=== PATIENT | male | born 1970 | race Caucasian/White ===

== ENCOUNTER 2017-09-22 12:39 | Emergency (ER) | payer MEDICARE ==
[2017-09-22 14:55] VITALS: BP 137/78
--- NOTE | 2017-09-22 15:04 | UC ---
Respiratory Complaint HPI - HPI Summary HPI Summary: Cough ongoing for 3 weeks. Sinus pressure last 4-5 days. Wheezing. - History of Current Complaint Chief Complaint: UCGeneralIllness Stated Complaint: SINUS Hx Obtained From: Patient Onset/Duration: Gradual Onset, Lasting Weeks - 3, Worse Since - last 4-5 days. Timing: Constant Severity Initially: Mild Severity Currently: Moderate Pain Intensity: 7 Character: Cough: Productive - green/ yellow, thick Aggravating Factors: Recumbent Position Alleviating Factors: Nothing Associated Signs And Symptoms: Positive: Wheezing, URI, Nasal Congestion, Hoarseness, Sinus Discomfort Related History: Seasonal Allergies - Allergies/Home Medications Allergies/Adverse Reactions: Allergies Allergy/AdvReac Type Severity Reaction Status Date / Time No Known Allergies Allergy Verified 09/22/17 14:46 Home Medications: Home Medications Amitriptyline TAB* [Elavil TAB*] 10 mg PO BEDTIME 09/22/17 [History Confirmed ] Dextromethorphan-Phenylephrine [Sudafed PE Preesure+Pain+ 10-5-325 mg] 2 tab PO Q4H PRN 09/22/17 [History Confirmed 09/22/17] Gabapentin CAP(*) [Neurontin 300 CAP(*)] 300 mg PO TID 09/22/17 [History Confirmed 09/22/17] Lisinopril TAB* [Prinivil TAB 10 MG*] 10 mg PO DAILY 09/22/17 [History Confirmed 09/22/17] Omeprazole CAP* [Prilosec CAP* 20 MG] 20 mg PO DAILY 09/22/17 [History Confirmed 09/22/17] PMH/Surg Hx/FS Hx/Imm Hx Cardiovascular History: Hypertension - Surgical History Surgical History: Yes Surgery Procedure, Year, and Place: L4 L5 Laminectomy. Dorsal Column Surgery - Family History Known Family History: Positive: Cardiac Disease, Hypertension, Diabetes - Social History Occupation: Disabled Lives: With Family Alcohol Use: Weekly Substance Use Type: Prescribed Smoking Status (MU): Current Every Day Smoker Type: Cigarettes Amount Used/How Often: 1 PPD Length of Time of Smoking/Using Tobacco: 31 Years Have You Smoked in the Last Year: Yes Review of Systems Constitutional: Fatigue ENT: Sinus Congestion, Sinus Pain/Tenderness Respiratory: Shortness Of Breath, Cough Is Patient Immunocompromised?: No All Other Systems Reviewed And Are Negative: Yes Physical Exam Triage Information Reviewed: Yes Appearance: No Pain Distress, Ill-Appearing, Obese Vital Signs: Initial Vital Signs Temp 97.6 F 09/22/17 14:50 Pulse 86 09/22/17 14:50 Resp 16 09/22/17 14:50 BP 137/78 09/22/17 14:50 Pulse Ox 97 09/22/17 14:50 Vital Signs Reviewed: Yes Eyes: Positive: Conjunctiva Clear ENT: Positive: Pharyngeal erythema, TMs normal Neck exam: Normal Respiratory: Positive: Lungs clear, Wheezing - Expiratory wheeze with coughing. Cardiovascular Exam: Normal Musculoskeletal: Positive: Other: - antalgic gait Neurological Exam: Normal Psychological Exam: Normal Skin Exam: Normal UC Diagnostic Evaluation - Laboratory O2 Sat by Pulse Oximetry: 97 Respiratory Course/Dx - Differential Dx/Diagnosis Differential Diagnosis/HQI/PQRI: Asthma, Exacerbation Of COPD, Laryngitis, Sinusitis Provider Diagnoses: Acute URI. Acute sinusitis. Acute bronchospasm Discharge - Discharge Plan Condition: Stable Disposition: HOME Prescriptions: predniSONE TAB* [Deltasone TAB*] 20 mg PO DAILY #18 tab Sulfamethox/Trimethoprim DS* [Bactrim DS 800/160 TAB*] 1 tab PO BID #20 tab Patient Education Materials: Sinusitis (ED), Sulfamethoxazole/Trimethoprim (By mouth), Bronchospasm (ED), Prednisone (By mouth) Referrals: No Primary Care Phys,NOPCP [Primary Care Provider] - Additional Instructions: Smoking Cessation Tricks. 1. Cut down by 1 cigarette per day every 2-3 days. Write the number of smokes for that day on the calendar. 2. Identify triggers to smoking: after meals, on the phone, in the car, with coffee, on breaks at work, etc. 3. Formulate a plan with a behavior to replace the smoking. Fireballs in the car , doodle pad on the phone, flavored creamer for the coffee, go for a walk after a meal or on break at work. 4. For stress smokes do deep breathing relaxation. Breath deep in through the nose hold the breath in for a few seconds then breath out slowly through the mouth.
== END 2017-09-22 15:18 | disposition home or self-care (01) ==
LOC: UCCORT 12:39
DX: J06.9 Acute upper respiratory infection, unspecified (principal); J01.90 Acute sinusitis, unspecified; J98.01 Acute bronchospasm; I10 Essential (primary) hypertension; E66.9 Obesity, unspecified; F17.210 Nicotine dependence, cigarettes, uncomplicated
CPT/HCPCS: 99212; G0463

== ENCOUNTER 2017-10-19 10:01 | Emergency (ER) | payer MEDICARE ==
[2017-10-19 13:08] VITALS: BP 170/97
--- NOTE | 2017-10-19 13:27 | UC ---
Respiratory Complaint HPI - HPI Summary HPI Summary: patient treated for a sinus infection 3 weeks ago, but now has SOB with walking , rib pain and productive cough, denies fever, but feels very sweaty most of the time, he is a smoker. - History of Current Complaint Chief Complaint: UCGeneralIllness Stated Complaint: COUGH,CONGESTION Time Seen by Provider: 10/19/17 12:57 Hx Obtained From: Patient Onset/Duration: Gradual Onset, Lasting Weeks Timing: Constant Severity Initially: Mild Severity Currently: Moderate Pain Intensity: 4 Character: Cough: Productive Aggravating Factors: Exertion, Deep Breaths, Recumbent Position Alleviating Factors: Bronchodilator Associated Signs And Symptoms: Positive: Dyspnea, Fever, Chills, Wheezing, URI, Nasal Congestion - Allergies/Home Medications Allergies/Adverse Reactions: Allergies Allergy/AdvReac Type Severity Reaction Status Date / Time No Known Allergies Allergy Verified 10/19/17 12:58 PMH/Surg Hx/FS Hx/Imm Hx Previously Healthy: Yes - Surgical History Surgical History: Yes Surgery Procedure, Year, and Place: L4 L5 Laminectomy. Dorsal Column Surgery - Family History Known Family History: Positive: Cardiac Disease, Hypertension, Diabetes - Social History Alcohol Use: Weekly Substance Use Type: None Smoking Status (MU): Current Every Day Smoker Type: Cigarettes Amount Used/How Often: 1 PPD Length of Time of Smoking/Using Tobacco: 31 Years Have You Smoked in the Last Year: Yes Household Exposure Type: Cigarettes Review of Systems Constitutional: Fever, Chills, Fatigue Skin: Negative Eyes: Negative ENT: Sore Throat, Ear Ache, Sinus Congestion Respiratory: Shortness Of Breath, Cough Cardiovascular: Negative Gastrointestinal: Negative Genitourinary: Negative Motor: Negative Neurovascular: Negative Musculoskeletal: Negative Neurological: Negative Psychological: Negative Is Patient Immunocompromised?: No All Other Systems Reviewed And Are Negative: Yes Physical Exam Triage Information Reviewed: Yes Appearance: Well-Nourished, Ill-Appearing, Pain Distress Vital Signs: Initial Vital Signs Temp 97.8 F 10/19/17 12:57 Pulse 95 10/19/17 12:57 Resp 20 10/19/17 12:57 BP 170/97 10/19/17 12:57 Pulse Ox 97 10/19/17 12:57 Vital Signs Reviewed: Yes Eye Exam: Normal ENT Exam: Normal ENT: Positive: Pharynx normal, TMs normal, Sinus tenderness Dental Exam: Normal Neck exam: Normal Neck: Positive: Supple, Nontender, No Lymphadenopathy Respiratory: Positive: Chest non-tender, Respiratory distress - with exertion, Decreased breath sounds - right lower lobe, Wheezing, Inspiration Cardiovascular Exam: Normal Cardiovascular: Positive: RRR, No Murmur, Pulses Normal Abdominal Exam: Normal Abdomen Description: Positive: Nontender, No Organomegaly, Soft Bowel Sounds: Positive: Present Musculoskeletal Exam: Normal Musculoskeletal: Positive: Strength Intact, ROM Intact, No Edema Neurological Exam: Normal Neurological: Positive: Alert, Muscle Tone Normal Psychological Exam: Normal Skin Exam: Normal UC Diagnostic Evaluation - Laboratory O2 Sat by Pulse Oximetry: 97 Re-Evaluation - Re-Evaluation First Eval Change: Improved - manual BP taken at exam BP 140/86 Respiratory Course/Dx - Course Course Of Treatment: hx obtained, exam performed ,meds reviewed, chest xray obtained, educated on risks of smoking and HTN and smoking and RESP illness. advised monitoring BP for the next week and report back to he PCP for follow up. - Differential Dx/Diagnosis Differential Diagnosis/HQI/PQRI: Asthma, Bronchitis, Influenza, Laryngitis, Sinusitis Provider Diagnoses: tobacco abuse. dyspnea. SOB. cough,. possible pneumonia. Hypertension Discharge - Discharge Plan Condition: Stable Disposition: HOME Prescriptions: Albuterol 2.5MG/3ML (0.083%)* [Ventolin 2.5 MG/3 ML NEB.HOLLIE*] 2.5 mg INH Q6H PRN #1 box PRN Reason: Cough Albuterol HFA INHALER* [Ventolin HFA Inhaler*] 2 puff INH Q4H PRN #1 mdi PRN Reason: Sob/Wheezing DOXYcycline CAP(*) [DOXYcycline 100MG CAP(*)] 100 mg PO BID #14 cap predniSONE TAB* [Deltasone TAB*] 40 mg PO DAILY #14 tab Patient Education Materials: Dyspnea (ED) Referrals: No Primary Care Phys,NOPCP [Primary Care Provider] - Additional Instructions: 1. take the medication as prescribed. 2. Use the albuterol neb twice a day and the inhaler every 4 hours as needed. 3. Prednisone for 7 days. 4. Follow up with any worsening symptoms. 5. Tylenol or Ibuprofen for pain and fever.
[2017-10-19] MEDS ORDERED: Albuterol/Ipratropium NEB.SOL* Albuterol 2.5 MG/Ipratropium 0.5 MG 3 ML INH ONE (14:01)
--- NOTE | 2017-10-19 14:48 | RAD ---
Indication: Shortness of breath, cough. 2 views of the chest are reviewed. Neurostimulator leads appear in place. Lung to demonstrate no pleural fluid, pneumonia or pneumothorax. IMPRESSION: No active cardiopulmonary disease is noted.
== END 2017-10-19 14:27 | disposition home or self-care (01) ==
LOC: UCCORT 10:01
DX: R06.00 Dyspnea, unspecified (principal); R06.02 Shortness of breath; R05 Cough; F17.210 Nicotine dependence, cigarettes, uncomplicated; I10 Essential (primary) hypertension
CPT/HCPCS: 71046; 99212; A9270-GY; G0463

== ENCOUNTER 2018-08-18 15:27 | Emergency (ER) | payer MEDICARE ==
--- OUTSIDE RECORDS SUMMARY | 2018-08-18 16:54 | XMS REPORT | Continuity of Care Document ---
:1970 Author Organization [facility] Allergies and Intolerances No Known Allergies Medications RxNorm Medication Dose Route Instructions Start End Status Date Date Albuterol HFA Inhaler 2 puff Inhalation inhaled every 6 Active 90 mcg/actuation hours as needed. Breo Ellipta Inhaler 1 inh Inhalation inhaled every Active 100 mcg-25 mcg/dose day Fluoxetine Oral 10 mg oral orally every Active day gabapentin 300 mg oral orally 3 times Active per day 19780401 Hydrochlorothiazide 25 1 tab oral orally every Active MG / Lisinopril 20 MG day Oral Tablet 20021004 Omeprazole 40 MG 40 mg oral orally every Active Delayed Release Oral day Capsule 610199 varenicline 1 MG Oral 1 mg oral orally 2 times Active Tablet per day vit d 80933sx oral orally every 7 Active days vit d 1000iu oral orally every Active day Problems Code Code System Problem Name Start Date End Date Status 72468010 SNOMED-CT Depressive disorder 07/03/2018 Active 52000330 SNOMED-CT Hypertensive disorder 07/03/2018 Active 90686822 SNOMED-CT Hypercholesterolemia 07/03/2018 Active sob with exertion 07/03/2018 Active 8668065 SNOMED-CT Arthritis 07/03/2018 Active 039755557 SNOMED-CT Backache 07/03/2018 Active 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 placement back stimulator Active 919109196 SNOMED-CT Laminectomy U Active battery replacement to stimuator U Active nasal polypectomy U Active cardiac catheterization U Active Procedures Code Code System Procedure Date 8JE40V7 ICD-10 PCS EXCISION STOMACH PERQ ENDO VERTICAL 07/23/2018 [id number] ICD-10 PCS RELEASE OMENTUM PERCUTANEOUS ENDO 07/23/2018 Results Laboratory Results Order: BASIC METABOLIC PANEL Specimen Source: Body Site: Legend: (G,H)=High, (GG,HH,CH,#H)=Above High Threshold, (#,L) =Low, (##,CL,#L,LL)=Below Low Threshold, (C,CC,CA,#A,A)=Abnormal LOINC Test Result Flag Range Units Date 2951-2 1Sodium SerPl-sCnc 137 136-145 mmol/L 2018 04:25 2823-3 1Potassium SerPl-sCnc 3.9 3.5-5.2 mmol/L 2018 04:25 5-0 1Chloride SerPl-sCnc 103 100-108 mmol/L 2018 04:25 8-9 1CO2 SerPl-sCnc 27 21-32 mmol/L 2018 04:25 2345-7 1Glucose SerPl-mCnc 89 70-100 mg/dL 2018 04:25 3094-0 1BUN SerPl-mCnc 22 H 7-21 mg/dL 2018 04:25 2160-0 1Creat SerPl-mCnc 0.8 0.6-1.3 mg/dL 2018 04:25 Interpretive Katerin: 1Normal Kidney Function or Mild Disease - GFR >OR=60 Chronic Kidney Disease - GFR 15-59 Renal Failure - GFR < 15 GFR not calculated on patients under 18 years of age. Calculated (estimated) GFR is based on the MDRD Study equation, which assumes a steady state for creatinine. Estimated GFR may not be appropriate for medication dosing. 17413-0 1Ca-I SerPl-mCnc 8.9 8.5-10.8 mg/dL 2018 04:25 15269-0 1GFR/BSA.pred SerPl-ArVRat >60 2018 04:25 Performing Lab Footnotes:[facility] - [id number] - [address] [place] [address] KEVIN BRANCH Order: CBC DIFF Specimen Source: Body Site: Legend: (G,H)=High, (GG,HH, CH,#H)=Above High Threshold, (#,L)=Low, (##,CL,#L,LL)=Below Low Threshold, (C,CC ,CA,#A,A)=Abnormal LOINC Test Result Flag Range Units Date 6690-2 1WBC # Bld Auto 10.8 4.8-10.8 K/uL 2018 04:25 00241-6 1RBC # Bld 4.15 L 4.60-6.20 M/uL 2018 04:25 718-7 1Hgb Bld-mCnc 13.5 13.5-18.0 gm/dL 2018 04:25 4544-3 1Hct VFr Bld Auto 39.2 L 41.0-53.0 % 2018 04:25 787-2 1MCV RBC Auto 94.6 80.0-100.0 fL 2018 04:25 85414-8 1MCHC RBC-mCnc 34.5 30.0-36.5 % 2018 04:25 75161-2 1MCH RBC Qn 32.6 27.0-34.0 pg 2018 04:25 37940-2 1RDW RBC 12.5 11.0-15.0 % 2018 04:25 777-3 1Platelet # Bld Auto 167 130-450 K/uL 2018 04:25 02928-0 1PMV Bld Auto 7.4 6.0-12.0 fL 2018 04:25 751-8 1Neutrophils # Bld Auto 65 37-80 % 2018 04:25 15760-6 1Lymphocytes NFr Bld 24 10-50 % 2018 04:25 5905-5 1Monocytes NFr Bld Auto 10 0-12 % 2018 04:25 88401-6 1Eosinophil # Bld 1 <=8 % 2018 04:25 704-7 1Basophils # Bld Auto 0 <=3 % 2018 04:25 61707-0 1Neutrophils # Bld 7.0 1.8-8.6 K/uL 2018 04:25 731-0 1Lymphocytes # Bld Auto 2.6 0.5-5.0 K/uL 2018 04:25 742-7 1Monocytes # Bld Auto 1.1 0.0-1.3 K/uL 2018 04:25 31728-7 1Eosinophil # Bld 0.1 0.0-0.9 K/uL 2018 04:25 704-7 1Basophils # Bld Auto 0.0 0.0-0.3 K/ul 2018 04:25 Performing Lab Footnotes:[facility] - [id number] - [address] [place] [address] KEVIN Tinsley ROSEANNOMD1 Order: BASIC METABOLIC PANEL Specimen Source: Body Site: Legend: (G,H)= High, (GG,HH,CH,#H)=Above High Threshold, (#,L)=Low, (##,CL,#L,LL)=Below Low Threshold, (C,CC,CA,#A,A)=Abnormal LOINC Test Result Flag Range Units Date 2951-2 1Sodium SerPl-sCnc 137 136-145 mmol/L 07/24/2018 05:12 2823-3 1Potassium SerPl-sCnc 4.2 3.5-5.2 mmol/L 07/24/2018 05:12 5-0 1Chloride SerPl-sCnc 101 100-108 mmol/L 07/24/2018 05:12 8-9 1CO2 SerPl-sCnc 27 21-32 mmol/L 07/24/2018 05:12 2345-7 1Glucose SerPl-mCnc 136 H 70-100 mg/dL 07/24/2018 05:12 3094-0 1BUN SerPl-mCnc 16 7-21 mg/dL 07/24/2018 05:12 2160-0 1Creat SerPl-mCnc 0.9 0.6-1.3 mg/dL 07/24/2018 05:12 Interpretive Katerin: 1Normal Kidney Function or Mild Disease - GFR >OR=60 Chronic Kidney Disease - GFR 15-59 Renal Failure - GFR < 15 GFR not calculated on patients under 18 years of age. Calculated (estimated) GFR is based on the MDRD Study equation, which assumes a steady state for creatinine. Estimated GFR may not be appropriate for medication dosing. 07319-3 1Ca-I SerPl-mCnc 9.2 8.5-10.8 mg/dL 07/24/2018 05:12 20379-5 1GFR/BSA.pred SerPl-ArVRat >60 07/24/2018 05:12 Performing Lab Footnotes:[facility] - [id number] - [address] [place] [address] KEVIN Tinsley ROSEANNOMD1 Order: CBC DIFF Man Diff Specimen Source: Body Site: Legend: (G,H)=High , (GG,HH,CH,#H)=Above High Threshold, (#,L)=Low, (##,CL,#L,LL)=Below Low Threshold, (C,CC,CA,#A,A)=Abnormal LOINC Test Result Flag Range Units Date 6690-2 1WBC # Bld Auto 14.6 H 4.8-10.8 K/uL 07/24/2018 05:12 52777-0 1RBC # Bld 4.69 4.60-6.20 M/uL 07/24/2018 05:12 718-7 1Hgb Bld-mCnc 14.9 13.5-18.0 gm/dL 07/24/2018 05:12 4544-3 1Hct VFr Bld Auto 44.1 41.0-53.0 % 07/24/2018 05:12 787-2 1MCV RBC Auto 94.0 80.0-100.0 fL 07/24/2018 05:12 22286-2 1MCH RBC Qn 31.7 27.0-34.0 pg 07/24/2018 05:12 94064-9 1MCHC RBC-mCnc 33.7 30.0-36.5 % 07/24/2018 05:12 59940-2 1RDW RBC 12.6 11.0-15.0 % 07/24/2018 05:12 777-3 1Platelet # Bld Auto 211 130-450 K/uL 07/24/2018 05:12 00697-5 1PMV Bld Auto 7.1 6.0-12.0 fL 07/24/2018 05:12 1MANUAL DIFFERENTIAL 75230-4 1Neuts Seg NFr Bld 86 H 37-80 % 07/24/2018 05:12 81721-7 1Granulocytes NFr Bronch Manual 1 % 07/24/2018 05:12 29375-3 1Lymphocytes NFr Bld 5 L 10-50 % 07/24/2018 05:12 743-5 1Monocytes # Bld Manual 8 <=12 % 07/24/2018 05:12 Performing Lab Footnotes:[facility] - [id number] - [address] [place] [address] KEVIN Tinsley ROSEANNOMD1 Order: MAGNESIUM Specimen Source: Body Site: Legend: (G,H)=High, (GG,HH ,CH,#H)=Above High Threshold, (#,L)=Low, (##,CL,#L,LL)=Below Low Threshold, (C, CC,CA,#A,A)=Abnormal LOINC Test Result Flag Range Units Date 1Magnesium SerPl-mCnc 2.2 1.7-2.6 mg/dL 07/24/2018 05:12 Performing Lab Footnotes:[facility] - [id number] - [address] [place] [address] KEVIN BERRIOSD1 Order: PHOSPHORUS Specimen Source: Body Site: Legend: (G,H)=High, (GG, HH,CH,#H)=Above High Threshold, (#,L)=Low, (##,CL,#L,LL)=Below Low Threshold, (C ,CC,CA,#A,A)=Abnormal LOINC Test Result Flag Range Units Date 27702-23 1Phosphate SerPl-mCnc 3.3 2.5-4.9 mg/dL 07/24/2018 05:12 Performing Lab Footnotes:[facility] - [id number] - [address] [place] [address] KEVIN BRANCH Pathology Results Order:PATHOLOGY CYTOLOGY HISTOLCollected Date: 07/23/2018 12:00:00 AM TISSUE PORTION OF STOMACH CLINICAL DIAGNOSIS MORBID OBESITY FINAL DIAGNOSIS STOMACH, PARTIAL GASTRECTOMY: FUNDIC GLAND TYPE POLYP. NO H. PYLORI IDENTIFIED. GROSS A. SPECIMEN IS RECEIVED IN FORMALIN LABELLED DARSHANA SOLANO, WITH MEDICAL RECORD NUMBER, DATE OF AND "PORTION OF STOMACH", AND CONSISTS OF A 28.0 X 5.0 X 5.0 CM., PARTIAL GASTRECTOMY SPECIMEN WITH STAPLE MARGINS EXTENDING ALONG ONE OF THE ENTIRE LONG AXES OF THE SPECIMEN. SECTIONING OF THE SPECIMEN REVEALS AN AVERAGE STOMACH WALL THICKNESS OF 0.3 CM. THE MUCOSA IS DAVIS-PINK AND, OTHERWISE, UNREMARKABLE EXCEPTING FOR VERY RARE MUCOSAL POLYPS AND SOME POSSIBLE MUCOSAL COBBLESTONING. MATERIALS BRANCH CHIEF SECTIONS ARE SUBMITTED IN 3 CASSETTES (CASSETTE 2 - POLYP). (CG/KI) MICROSCOPIC WARTHIN-STARRY STAIN FAILS TO HIGHLIGHT ORGANISMS CONSISTENT WITH H. PYLORI. APPROPRIATE REACTIVE APPEARING CONTROLS ARE REVIEWED. ANTONI MORRIS D.O. , PATHOLOGIST (CASE SIGNED 07/24/2018) Social History Code Code System Social History Description Dates Observed Observation 620686681871305 SNOMED CT Current Smoking Current some day Status smoker UNK AdministrativeGender Sex Assigned At Unknown Vital Signs Code Code System Vitals Value Date 8310-5 LOINC Body Temperature 98.7 [degF] 2018 8865-8 LOINC Pulse Rate 71 {beats}/min 2018 9279-1 LOINC Respiratory Rate 18 /min 2018 90832-6 LOINC O2% BldC Oximetry 94 % 2018 8480-6 LOINC BP Systolic 129 mm[Hg] 2018 8462-4 LOINC BP Diastolic 83 mm[Hg] 2018 8302-2 LOINC Height 72 [in_i] 07/22/2018 22042-4 LOINC Weight 151 kg 07/22/2018 3140-1 LOINC Body surface area Derived from formula 2.65 m2 07/22/2018 20748-6 LOINC BMI (Body Mass Index) 45.5 kg/m2 07/22/2018 Goals Section No data in the system Health Concerns No data in the systemEncounter Diagnosis Date Code Code System Diagnosis Status 45206231716558 SNOMED-CT MORBID SEVERE OBES D/T EXCESS OMER Active Advance Directives [facility] Directive Type Effective Date Oracle Programmer Notes Supporting Document Name Address Phone No Directive 07/23/2018 Not Specified Not Specified Not dtr Jemima is Yes Type 7:02:00 AM Specified HCP-- specified [phone]. *RHIO - CONSENT IS YES Directive Type Effective Date Oracle Programmer Notes Supporting Document Name Address Phone No Directive Type 05/15/2018 Not Specified Not Specified Not Specified None No specified 12:10:45 PM Family History No data in the system Functional Status Code Functional Condition Code System Date Status Self care SNOMED CT 07/23/[address] 07/23/[address] 2018 Active Family/so SNOMED CT 07/23/[address]izes understanding SNOMED CT 2018 Active Needs further teaching SNOMED CT 07/23/2018 Active 1 or 2 - all of the above SNOMED CT 2018 Active 1 or 2 - pad bony prominences SNOMED CT 07/23/2018 Active Bathroom privileges SNOMED CT 07/23/[address] 2018 Active 3 - wedge foam cushion if oob SNOMED CT 07/24/2018 Active 4 - manage pain and encourage activity as SNOMED CT 2018 Active tolerated 3 - encourage and assist as needed in SNOMED CT 07/24/2018 Active repositioning 3 - encourage active rom SNOMED CT 07/24/2018 Active 3 - include family in interventions SNOMED CT 07/24/[address] Active Self feed SNOMED CT 07/24/[address] 07/24/[address] 07/24/[address] Active Needs assistance SNOMED CT 07/24/2018 Active 364136240 Able to wash self SNOMED CT 2018 Active Immunizations Vaccine Code Code System Vaccine Name Date Status flu 07/02/2018 Completed Medical Equipment Implants Implanted Date Implant Site HADLEY stimularor back Mental Status Code Cognitive Condition Code System Date Status Clear SNOMED CT 07/23/2018 Active 478123840 Orientated SNOMED CT 07/23/2018 Active 981089185 Mentally alert SNOMED CT 07/23/2018 Active 145481251 Oriented to time SNOMED CT 07/23/2018 Active 119887278 Oriented to time (finding) SNOMED CT 07/23/2018 Active 898306819 Oriented to place SNOMED CT 07/23/2018 Active 488695990 Oriented to place (finding) SNOMED CT 07/23/2018 Active 857181094 [facility] Active Assessment and Plan Assessments No data in the systemPlan Of Treatment No data in the systemPending Tests No data in the system Hospital Discharge Instructions Discharge InstructionsDischarge DiagnosisLAPAROSCOPIC SLEEVE GASTRECTOMYFollow Up AppointmentFOLLOW UP WITH DR. SHARMA IN 1-2 WEEKS, FOLLOW UP WITH PRIMARY CARE IN 1 MONTHDiet at HomeBARIATRIC DIET FOR 1 WEEK, ADVANCE TOLERATEDActivityALL LIGHT ACTIVITIES PERMITTED/ NO LIFTING > 15 LBS FOR 6 WEEKSMAY GO UP AND DOWN STAIRSWound Care Instructions:KEEP WOUNDS CLEAN AND DRY / SURGICAL GLUE, WASH OVER INCISIONS WITH SOAP AND WATER, DO NOT SCRUBMAY SHOWER TOMORROWAll Personal Belongings, Valuables, Pre-Adm Meds Returned to Patient/FamilyYESMedicationsNew Medication List Provided AboveDischarge Instructions Read, Verbalized, and Acknowledged by:PatientPatients HOME MEDICATIONS returned to patient upon dischargeN/A Reason for Visit No data in the system
[2018-08-18 16:56] VITALS: BP 135/76
[2018-08-18] MEDS ORDERED: Fluorescein Sodium TOPICAL* 1 MG TEST STRIP OPHTHALMIC ONE (17:03)
[2018-08-18] MEDS ORDERED: Tetracaine 0.5% OPTH.SOL 4 ML* 1 DROP BTL BOTH EYES ONE (17:04)
[2018-08-18] MEDS ORDERED: BSS OPTH.SOL* BTL OPHTHALMIC ONE (17:05)
--- NOTE | 2018-08-18 17:41 | UC ---
Eye Complaint HPI - HPI Summary HPI Summary: 3 WEEKS OF BILATERAL EYE IRRITATION AND REDNESS. HAS CLEAR DRAINAGE. NO VISUAL DISTURBANCES. DOES NOT WEAR CONTACTS. HAS FB SENSATION. NO PAIN WITH EOM. - History of Current Complaint Chief Complaint: UCEye Stated Complaint: B/L EYE COMPLAINT Time Seen by Provider: 08/18/18 16:58 Hx Obtained From: Patient, Family/Medical Device Sales Consultant - Onset/Duration: Gradual Onset, Lasting Weeks, Still Present Timing: Constant Severity Initially: Moderate Severity Currently: Moderate Pain Intensity: 4 Pain Scale Used: 0-10 Numeric Location of Injury: Conjunctiva Character: Foreign Body Sensation Aggravating Factor(s): Light, Blinking Alleviating Factor(s): Nothing Associated Signs And Symptoms: Positive: Drainage (Clear). Negative: Vision Impairment Bilateral - Allergies/Home Medications Allergies/Adverse Reactions: Allergies Allergy/AdvReac Type Severity Reaction Status Date / Time No Known Allergies Allergy Verified 10/19/17 12:58 Home Medications: Home Medications Fluoxetine [Fluoxetine HCl] 100 mg PO DAILY 08/18/18 [History Confirmed 08/18/18 ] Fluticasone/Vilanterol [Breo Ellipta 200-25 Mcg INH] 1 each INH DAILY 08/18/18 [ History Confirmed 08/18/18] Tetrahydrozoline HCl [Visine] 1 drop BOTH EYES Q2H 08/18/18 [History Confirmed 08/18/18] PMH/Surg Hx/FS Hx/Imm Hx - Additional Past Medical History Additional PMH: CHRONIC BACK PAIN Cardiovascular History: Hypertension - Surgical History Surgical History: Yes Surgery Procedure, Year, and Place: L4 L5 Laminectomy. Dorsal Column Surgery. GASTRIC SLEEVE - Family History Known Family History: Positive: Cardiac Disease, Hypertension, Diabetes - Social History Alcohol Use: Weekly Substance Use Type: None Smoking Status (MU): Current Every Day Smoker Type: Cigarettes Amount Used/How Often: 1 PPD Length of Time of Smoking/Using Tobacco: 31 Years Have You Smoked in the Last Year: Yes Household Exposure Type: Cigarettes Review of Systems All Other Systems Reviewed And Are Negative: Yes Constitutional: Positive: Negative Eyes: Positive: Drainage, Eye Redness, Photophobia ENT: Positive: Negative Respiratory: Positive: Negative Cardiovascular: Positive: Negative Gastrointestinal: Positive: Negative Neurological: Positive: Negative Physical Exam Triage Information Reviewed: Yes Appearance: Well-Nourished, Pain Distress - LOOKS TO BE IN MILD DISCOMFORT Vital Signs: Initial Vital Signs Temp 97.3 F 08/18/18 16:53 Pulse 80 08/18/18 16:53 Resp 16 08/18/18 16:53 BP 135/76 08/18/18 16:53 Pulse Ox 96 08/18/18 16:53 Vital Signs Reviewed: Yes Eyes: Positive: Conjunctiva Inflamed - BILATERALLY, Discharge - CLEAR TEARING BOTH EYES, Other: - PERRL, EOMI. SLIGHT FLUORESCEIN UPTAKE BULBAR CONJUNCTIVAE BILATERALLY ENT: Positive: Hearing grossly normal Neck: Positive: Supple Respiratory: Positive: No respiratory distress, No accessory muscle use Cardiovascular: Positive: Pulses Normal Abdomen Description: Positive: Soft Musculoskeletal: Positive: No Edema Neurological: Positive: Alert Psychological: Positive: Age Appropriate Behavior Skin: Negative: Rashes Eye Complaint Course/Dx - Differential Dx/Diagnosis Provider Diagnosis: Conjunctivitis, both eyes Discharge - Sign-Out/Discharge Documenting (check all that apply): Patient Departure All imaging exams completed and their final reports reviewed: No Studies - Discharge Plan Condition: Stable Disposition: HOME Prescriptions: Ciprofloxacin 0.3% OPTH.HOLLIE* [Cipro 0.3% Opth*] 1 drop BOTH EYES Q4H #1 btl Ketorolac 0.5% OPHTH (NF) 1 drop BOTH EYES QID PRN #1 btl PRN Reason: Pain Patient Education Materials: Conjunctivitis (ED) Referrals: No Primary Care Phys,NOPCP [Primary Care Provider] - Additional Instructions: CONJUNCTIVAL ABRASION Conjunctival abrasions occur from blunt injuries and mild chemical or thermal schultz and present as an irregularity of the epithelial surface of the conjunctiva, best seen using fluorescein stain and a cobalt blue light. Regions of denuded epithelium will appear green. Corneal abrasions are also frequently present. Isolated conjunctival abrasions are treated with antibiotic ointment applied four times daily for one week. Referral to an rag baler for a complete eye examination within one to three days of injury is a reasonable precaution in these patients if all symptoms have not resolved and in contact wearers. These injuries typically heal within two to three days. Patients with an isolated conjunctival injury typically recover fully without any vision loss Don't drive or operate machinery until you have the use of both your eyes. The abrasion usually is healed in one or two days. A follow-up examination to confirm healing is recommended. Call the doctor or return at once if you develop severe pain, decreasing vision, eye swelling, or purulent drainage. FOLLOW-UP WITH AN EYE DOCTOR IF YOUR SYMPTOMS ARE NOT IMPROVING IN THE NEXT 3-5 DAYS. SEEK FOLLOW-UP MORE URGENTLY IF YOU DEVELOP FEVER, EYE PRESSURE, HEADACHE , NAUSEA, VISUAL DISTURBANCES OR ANY OTHER CONCERNING SYMPTOMS. - Billing Disposition and Condition Condition: STABLE Disposition: Home
== END 2018-08-18 17:38 | disposition home or self-care (01) ==
LOC: UCCORT 15:27
DX: H10.9 Unspecified conjunctivitis (principal); F17.210 Nicotine dependence, cigarettes, uncomplicated
CPT/HCPCS: 99212; A9270-GY; G0463

== ENCOUNTER 2019-09-11 14:57 | Emergency (ER) | payer OTHER, MEDICARE ==
--- OUTSIDE RECORDS SUMMARY | 2019-09-11 15:04 | XMS REPORT | Continuity of Care Document ---
:1970 External Reference #:[id number] Author Name Esau Abarca PA Address [address], [address] [place] [address] Care Team Providers Name Role Phone Marisol Hawkins MD Care Team Information Math Teacher [phone] Problems Active Problems Provider Date Sprain of knee and leg Onset: 08/17/2003 Dyspnea Devan Melendez M.D., [facility] Onset: 01/24/2011 Chronic osteomyelitis of lower leg Onset: 08/17/2003 Chest pain Devan Melendez M.D., [facility] Onset: 01/24/2011 Type 2 diabetes mellitus Devan Melendez M.D., [facility] Onset: 01/24/2011 Hyperlipidemia Devan Melendez M.D., [facility] Onset: 01/24/2011 Benign essential hypertension Devan Melendez M.D., [facility] Onset: 2010 Chest pain Onset: Elevated liver enzymes level Onset: Bleeding from nose Onset: Hemoptysis Onset: Social History Type Date Description Comments Sex Unknown Tobacco Use Start: Unknown Current Cigarette Smoker 1 Pack Daily Smokeless Tobacco Never Used Smokeless Tobacco ETOH Use Occasionally consumes alcohol Tobacco Use Start: Unknown Patient is a current smoker, 10 cig/day smokes every day Recreational Drug Use Denies Drug Use Smoking Status Reviewed: 08/06/19 Patient is a current smoker, 10 cig/day smokes every day Allergies, Adverse Reactions, Alerts Description No Known Drug Allergies Medications Active Medications SIG Qnty Indications Ordering Date Provider Vancomycin HCL 1 by mouth four 40caps Monserrat Kirk, 08/17/2019 125mg times a day Capsules Suprep Bowel Prep Kit Complete first part 354ml Z12.11 Monserrat Kirk, 07/2019 of prep the evening 17.5-3.13-1.6GM/177ML before procedure Solution and second part at least 4 hours before your procedure time Gas Relief take 1 tab day 2units Z12.11 Monserrat Kirk, 08/06/2019 80mg before colonoscopy Chewtabs and 1 tab day of colonoscopy early in the am Ondansetron take 1 tab every 30tabs R11.2 Monserrat Kirk, 08/06/2019 4mg Tablets 4-6 hours as needed Dispers for nausea/vomiting Lisinopril 1 po qd 30tabs Unknown 10mg Tablets Albuterol 2 puffs q 4h/ prn 1units Unknown 90mcg/Act Aerosol Amitriptyline HCL 2 po qhs prn Unknown 10mg Tablets Ambien 1 po qhs prn 30tabs Unknown 5mg Tablets Fluoxetine HCL (PMDD) Once Daily 90caps Unknown 10mg Capsules Gabapentin 3 Times Daily 90caps Unknown 300mg Capsules Omeprazole Once Daily 90caps Unknown 40mg Capsules DR History Medications Metronidazole 3 Times Daily 30tabs Unknown 07/21/2019 - 08/06/2019 500mg Tablets Immunizations Description No Information Available Vital Signs Date Vital Result Comment 08/06/2019 2:39pm BP Systolic Sitting Left Arm 122 mmHg BP Diastolic Sitting Left Arm 79 mmHg Body Temperature 98.2 F Heart Rate 75 /min Respiratory Rate 16 /min Height 70 inches 5'10" Weight 233.50 lb Pain Level 5 abdomen BMI (Body Mass Index) 33.5 kg/m2 BSA (Body Surface Area) 2.23 m2 [place] body weight in kilograms 75 kg O2 % BldC Oximetry 94 % Ra 02/15/2011 8:35am BP Systolic Sitting Right Arm 104 mmHg BP Diastolic Sitting Right Arm 88 mmHg Heart Rate 60 /min regular Respiratory Rate 16 /min Height 70 inches 5'10" Weight 257.00 lb BMI (Body Mass Index) 36.9 kg/m2 Results Test Acquired Date Facility Test Result H/L Range Note [facility] C[facility] Diff[facility] POSITIVE Negative 1, [address] Toxin B by PCR [place], [place] [id number] [phone] Enteric 08/14/2019 [facility] Campylobacter SP NEGATIVE Negative Pathogens [address] PCR Panel, [place] [address] [phone] E. coli Stec PCR NEGATIVE Negative 3 Shigella Sp. PCR NEGATIVE Negative Salmonella Sp. PCR NEGATIVE Negative 4 Laboratory test 08/14/2019 [facility] Pancreatic > 500.0 ug/g >200 [address] Elastase (Pe-1) [place], [place] [id number] [phone] Calprotectin, Fecal 191 ug/g High 0-120 6 Ova And 08/14/2019 [facility] Cryptosporidium, PCR NEGATIVE Negative Parasite [address] Screen, [place] [address] [phone] Giardia PCR NEGATIVE Negative 7 [facility] 07/21/2019 N2N/CCD Import Sodium Level 139 136-145 BUN/Creat SerPl 07/21/2019 N2N/CCD Import BUN/Creatinine 18.7 Ratio GFR/Bsa 07/21/2019 N2N/CCD Import Estimated GFR >60 >60 pred.black SerPl () MDRD-ArVRat GFR/Bsa pred.non 07/21/2019 N2N/CCD Import Estimated GFR >60 >60 black SerPl (Non- MDRD-ArVRat [place] Creat SerPl-[facility] 07/21/2019 N2N/CCD Import Creatinine 0.8 0.6-1.3 BUN SerPl-nc 07/21/2019 N2N/CCD Import Blood Urea Nitrogen 15 7-18 Glucose 07/21/2019 N2N/CCD Import Glucose Screen 96 74-106 [facility] nRBC # Bld Auto 07/21/2019 N2N/CCD Import Nucleated RBC 0.00 Absolute Count (auto) Imm Granulocytes 07/21/2019 N2N/CCD Import Immature 0.04 # Bld Auto Granulocyte # (Auto) Basophils # Bld 07/21/2019 N2N/CCD Import Basophils # (Auto) 0.02 0.0- 0.1 Auto Eosinophil # Bld 07/21/2019 N2N/CCD Import Eosinophils # 0.18 0.0-0.5 Auto (Auto) Monocytes # Bld 07/21/2019 N2N/CCD Import Monocytes # (Auto) 0.88 High 0.0-0.8 Auto Lymphocytes # Bld 07/21/2019 N2N/CCD Import Lymphocytes # 2.55 1.0-4.0 Auto (Auto) Neutrophils # Bld 07/21/2019 N2N/CCD Import Neutrophils # 5.71 1.8-7.0 Auto (Auto) nRBC/100 WBC Bld 07/21/2019 N2N/CCD Import Nucleated Red Blood 0.0 < 10 / 100 Auto-Rto Cells % (auto) WBC Potassium 07/21/2019 N2N/CCD Import Potassium Level 3.3 Low 3.5-5.1 SerPl-sCnc Chloride 07/21/2019 N2N/CCD Import Chloride Level 106 98-107 SerPl-sCnc Co2 SerPl-sCnc 07/21/2019 N2N/CCD Import Carbon Dioxide 30 21-32 Level Anion Gap 07/21/2019 N2N/CCD Import Anion Gap 3 Low 8-16 SerPl-sCnc Calcium 07/21/2019 N2N/CCD Import Calcium Level 8.5 8.5-10.1 SerPl-mCnc Prot SerPl-mCnc 07/21/2019 N2N/CCD Import Total Protein 7.1 6.4-8.2 Albumin 07/21/2019 N2N/CCD Import Albumin 3.3 Low 3.4-5.0 SerPl-mCnc Globulin Ser 07/21/2019 N2N/CCD Import Globulin 3.8 1.9-4.3 Calc-mCnc Albumin/Glob 07/21/2019 N2N/CCD Import Albumin/Globulin 0.9 SerPl Ratio Bilirub 07/21/2019 N2N/CCD Import Total Bilirubin 1.0 0.2-1.0 SerPl-mCnc Ast SerPl-cCnc 07/21/2019 N2N/CCD Import Aspartate Amino 41 High 15-37 Transf (Ast/Sgot) Alt SerPl-cCnc 07/21/2019 N2N/CCD Import Alanine 70 12-78 Aminotransferase (Alt/SGPT) Alp SerPl-cCnc 07/21/2019 N2N/CCD Import Alkaline 64 45-117 Phosphatase Lipase SerPl-cCnc 07/21/2019 N2N/CCD Import Lipase 298 High 56-289 Lactate 07/21/2019 N2N/CCD Import Lactic Acid Level 0.9 0.4-1.9 SerPl-sCnc Color Ur Auto 07/21/2019 N2N/CCD Import Urine Color Yellow Yellow Appearance Ur 07/21/2019 N2N/CCD Import Urine Clarity Clear Clear Glucose Ur Ql 07/21/2019 N2N/CCD Import Urine Glucose (Ua) Negative Negative Strip.auto Bilirub Ur Ql 07/21/2019 N2N/CCD Import Urine Bilirubin Negative Negative Strip.auto Ketones Ur Ql 07/21/2019 N2N/CCD Import Urine Ketones 10 Negative Strip.auto Sp Gr Ur 07/21/2019 N2N/CCD Import Urine Specific >1.050 Low 1.010-1.030 Refractometry [place] Hgb Ur Ql 07/21/2019 N2N/CCD Import Urine Blood Negative Negative Strip.auto pH Ur Strip.auto 07/21/2019 N2N/CCD Import Urine pH 6.5 6.5-7.5 Prot Ur Ql 07/21/2019 N2N/CCD Import Urine Protein 50 High Negative Strip.auto Urobilinogen Ur 07/21/2019 N2N/CCD Import Urine Urobilinogen 2.0 < 2.0 Ql Strip.auto Nitrite Ur Ql 07/21/2019 N2N/CCD Import Urine Nitrite Negative Negative Strip.auto Leukocyte 07/21/2019 N2N/CCD Import Urine Leukocyte Negative Negative esterase Ur Ql Esterase Strip.auto Lab Results 07/21/2019 N2N/CCD Import Urine RBC 3-5 0-2 Squamous Ur Ql 07/21/2019 N2N/CCD Import Urine Epithelial Few None Seen Auto Cells Mucous Threads Ur 07/21/2019 N2N/CCD Import Urine Mucus Small None Seen Ql Auto WBC # XXX Auto 07/21/2019 N2N/CCD Import White Blood Count 9.4 3.4-10.5 RBC # Bld Auto 07/21/2019 N2N/CCD Import Red Blood Count 4.40 4.20-5.80 Hgb Bld-mCnc 07/21/2019 N2N/CCD Import Hemoglobin 15.9 12.8-17.0 Hct VFr Bld Auto 07/21/2019 N2N/CCD Import Hematocrit 43.5 38.0-48.0 MCV RBC Auto 07/21/2019 N2N/CCD Import Mean Corpuscular 98.9 High 80.0- 96.0 Volume MCH RBC Qn Auto 07/21/2019 N2N/CCD Import Mean Corpuscular 36.1 High 27.0 -33.0 Hemoglobin MCHC RBC 07/21/2019 N2N/CCD Import Mean Corpuscular 36.6 High 31.7-36.0 Auto-mCnc Hemoglobin Concent Platelet # Bld 07/21/2019 N2N/CCD Import Platelet Count 208 155-360 Auto RDW RBC Auto 07/21/2019 N2N/CCD Import Red Cell 47.8 36-51 Distribution Width RDW RBC Auto-Rto 07/21/2019 N2N/CCD Import RDW Coefficient of 13.2 11.6- 15.8 Variation PMV Bld Auto 07/21/2019 N2N/CCD Import Mean Platelet 9.7 6.6-10.6 Volume Neutrophils/leuk 07/21/2019 N2N/CCD Import Neutrophils (%) 60.9 33.0- 73.0 NFr Bld Auto (Auto) Lymphocytes/leuk 07/21/2019 N2N/CCD Import Lymphocytes (%) 27.2 20.0- 42.0 NFr Bld Auto (Auto) Monocytes/leuk 07/21/2019 N2N/CCD Import Monocytes (%) 9.4 0.0-10.0 NFr Bld Auto (Auto) Eosinophil/leuk 07/21/2019 N2N/CCD Import Eosinophils (%) 1.9 0.0-6.6 NFr Bld Auto (Auto) Basophils/leuk 07/21/2019 N2N/CCD Import Basophils (%) 0.2 0.0-1.1 NFr Bld Auto (Auto) Imm 07/21/2019 N2N/CCD Import Immature 0.4 0.0-5.0 Granulocytes/leuk Granulocyte % NFr Bld Auto (Auto) 1 R19.7 2 Recommended Therapy: Oral Vancomycin (PO) NOTE: Discontinuing broad spectrum antibiotics is recommended A positive C. diff result does not necessarily indicate the presence of viable organisms. It does however indicate the presence of the tcdB gene and allows for presumptive detection of a Clostridium difficile toxigenic organism. As with all PCR-based in vitro diagnostic tests, extremely low levels of DNA below the limit of detection of the assay may produce a false negative result. METHOD: PCR 3 Shiga-toxin producing E. coli (STEC). 4 A positive result does not necessarily indicate the presence of viable organism. It does however, indicate the presence of DNA from Campylobacter sp., Salmonella sp., Shigella sp. and/or shiga toxin producing E. coli (STEC). Yersinia, Vibrio, Aeromonas and Plesiomonas are not routinely screened for and should be requested separately. Assay Limitations This assay detects only Campylobacter jejuni and Campylobacter coli and does not differentiate between the species. Other campylobacter species are not detected by the assay. The assay does not distinguish which Shiga toxin gene (stx1/stx2) is present in a specimen. The assay does not differentiate between Shigella sp., and enteroinvasive Escherichia coli (EIEC). As with all PCR-based in vitro diagnostic tests, extremely low levels of DNA below the analytical sensitivity of the assay may produce a false negative result. METHOD: PCR 5 INFCE Result Units: ug Elast./g Severe Pancreatic Insufficiency: <100 Moderate Pancreatic Insufficiency: 100 - 200 Normal: >200 Performed at: [address] [id number] Director Marketing Analytics: Yue Mejia MD, Phone: [phone] 6 Concentration Interpretation Follow-Up <16 - 50 ug/g Normal None >50 -120 ug/g Borderline Re-evaluate in 4-6 weeks >120 ug/g Abnormal Repeat as clinically indicated 7 NOTE: A positive result does not necessarily indicate the presence of viable organisms. It does however, indicate the presence of DNA from G. lamblia, C. parvum, C. hominis. This assay is intended to detect DNA from C. hominis and C. parvum without distinguishing between these two species. This test is not intended to detect DNA from other species of Cryptosporidium. As with all PCR-based in vitro diagnostic tests, levels of DNA present may be below the analytical sensitivity of the assay and therefore cause a false negative result. Method: PCR Procedures Description No Information Available Medical Devices Description No Information Available Encounters Type Date Location Provider Dx Diagnosis Office Visit 08/06/2019 2:20p Monserrat Nathan MD Z12.11 Encounter for screening for malignant neoplasm of colon R19.7 Diarrhea, unspecified R10.30 Lower abdominal pain, unspecified R11.2 Nausea with vomiting, unspecified Assessments Date Code Description Provider 09/07/2019 Z12.11 Encounter for screening for malignant Esau Abarca PA neoplasm of colon 09/07/2019 R11.2 Nausea with vomiting, unspecified Esau Abarca PA 08/06/2019 Z12.11 Encounter for screening for malignant Monserrat Kirk MD neoplasm of colon 08/06/2019 R19.7 Diarrhea, dominiqueified Monserrat Kirk MD 08/06/2019 R10.30 Lower abdominal pain, unspecified Monserrat Kirk MD 08/06/2019 R11.2 Nausea with vomiting, unspecified Monserrat Kirk MD Plan of Treatment Future Appointment(s):09/10/2019 11:00 am - Esau Abarca PA at GI2019 11:00 am - Monserrat Kirk MD at Operating Room10/09/2019 2:00 pm - Monserrat Kirk MD at GI09/07/2019 - Esau Abarca, PAZ12.11 Encounter for screening for malignant neoplasm of colonComments:Proceed with colonoscopy as ixtmaavbxT38.2 Nausea with vomiting, unspecifiedComments:Proceed with EGD as scheduled Functional Status Functional Condition Comment Date Status Independent with all ADL's Active Independent with all IADL's Active Mental Status Description No Information Available Referrals Description No Information Available
--- OUTSIDE RECORDS SUMMARY | 2019-09-11 15:04 | XMS REPORT | Continuity of Care Document ---
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 Onset: 01/24/2011 Chronic osteomyelitis of lower leg Onset: 08/17/2003 Chest pain Devan Melendez M.D., [facility] Onset: 01/24/2011 Type 2 diabetes mellitus Devan Melendez M.D., [facility] Onset: 01/24/2011 Hyperlipidemia Devan Melendez M.D., [facility] Onset: 01/24/2011 Benign essential hypertension Devan Melendez M.D., [facility] Onset: 2010 Chest pain Onset: [...] Medications SIG Qnty Indications Ordering Date Provider Suprep Bowel Prep Kit Complete first part 354ml Z12.11 Monserrat Kirk, 12/ 07/2019 of prep the evening 17.5-3.13-1.6GM/177ML before [...] kg/m2 BSA (Body Surface Area) 2.23 m2 [place] body weight in kilograms 75 kg O2 % BldC Oximetry 94 % Ra 02/15/2011 8:35am BP Systolic Sitting Right Arm 104 mmHg BP Diastolic Sitting Right Arm 88 mmHg Heart Rate 60 /min regular Respiratory Rate 16 /min Height 70 inches 5'10" Weight 257.00 lb BMI (Body Mass Index) 36.9 kg/m2 Results Test Acquired Facility Test Result H/L Range Note Date nRBC/100 WBC Bld 07/21/2019 N2N/CCD Import Nucleated Red 0.0 < 10/ 100 Auto-Rto Blood Cells % WBC (auto) Neutrophils # 07/21/2019 N2N/CCD Import Neutrophils # 5.71 1.8-7.0 Bld Auto (Auto) Lymphocytes # 07/21/2019 N2N/CCD Import Lymphocytes # 2.55 1.0-4.0 Bld Auto (Auto) Monocytes # Bld 07/21/2019 N2N/CCD Import Monocytes # (Auto) 0.88 High 0.0-0.8 Auto Eosinophil # Bld 07/21/2019 N2N/CCD Import Eosinophils # 0.18 0.0-0.5 Auto (Auto) Basophils # Bld 07/21/2019 N2N/CCD Import Basophils # (Auto) 0.02 0.0- 0.1 Auto Imm Granulocytes 07/21/2019 N2N/CCD Import Immature 0.04 # Bld Auto Granulocyte # (Auto) nRBC # Bld Auto 07/21/2019 N2N/CCD Import Nucleated RBC 0.00 Absolute Count (auto) Glucose 07/21/2019 N2N/CCD Import Glucose Screen 96 74-106 SerPl-mCnc BUN SerPl-mCnc 07/21/2019 N2N/CCD Import Blood Urea 15 7-18 Nitrogen Creat SerPl-mCnc 07/21/2019 N2N/CCD Import Creatinine 0.8 0.6-1.3 GFR/Bsa pred.non 07/21/2019 N2N/CCD Import Estimated GFR >60 >60 black SerPl (Non- MDRD-ArVRat [place] GFR/Bsa 07/21/2019 N2N/CCD Import Estimated GFR >60 >60 pred.black SerPl () MDRD-ArVRat BUN/Creat SerPl 07/21/2019 N2N/CCD Import BUN/Creatinine 18.7 Ratio Sodium 07/21/2019 N2N/CCD Import Sodium Level 139 136-145 SerPl-sCnc Potassium 07/21/2019 N2N/CCD Import Potassium Level 3.3 [...] N2N/CCD Import Alkaline 64 45-117 Phosphatase Lipase 07/21/2019 N2N/CCD Import Lipase 298 High 56-289 SerPl-cCnc Lactate 07/21/2019 N2N/CCD Import Lactic Acid Level [...] 07/21/2019 N2N/CCD Import Urine Specific >1.050 Low 1.010-1.03 Refractometry Plain 0 Hgb Ur Ql 07/21/2019 N2N/CCD Import Urine [...] Few None Seen Auto Cells Mucous Threads 07/21/2019 N2N/CCD Import Urine Mucus Small None Seen Ur Ql Auto WBC # XXX Auto 07/21/2019 [...] Imm 07/21/2019 N2N/CCD Import Immature 0.4 0.0-5.0 Granulocytes/jose Granulocyte % k NFr Bld Auto (Auto) Procedures Description No Information Available Medical Devices Description No Information Available Encounters Description No Information Available Assessments Date Code Description Provider 08/06/2019 Z12.11 Encounter for screening for malignant neoplasm of Monserrat Kirk MD colon 08/06/2019 R19.7 Diarrhea, unspecified Monserrat Kirk MD 08/06/2019 R10.30 Lower abdominal pain, unspecified Monserrat Kirk MD 08/06/2019 R11.2 Nausea with vomiting, unspecified Monserrat Kirk MD Plan of Treatment Future Appointment(s):10/09/2019 2:00 pm - Monserrat Kirk MD at GI09/07/2019 3 :00 pm - Esau Abarca PA at GI08/06/2019 - Monserrat Kirk MDZ12.11 Encounter for screening for malignant neoplasm of colonNew Medication:Suprep Bowel Prep Kit 17.5-3.13-1.6 GM/177ML - Complete first part of prep the evening before procedure and second part at least 4 hours before your procedure timeGas Relief 80 mg - take 1 tab day before colonoscopy and 1 tab day of colonoscopy early in the amNew Orders:Colonoscopy, Ordered: 08/06/19R19.7 Diarrhea, unspecifiedNew Labs:C. Difficile Toxin By PCR, Ordered: 08/06/19Enteric Pathogens Panel, PCR, Ordered: 08/06/19Pancreatic Elastase (Pe-1), Ordered: 08/13Calprotectin, Fecal, Ordered: 08/06/19Ova & Parasite Comprehensive, Ordered: 08/06/19Comments:Recommended Imodium 2 mg x2 tablets in the morning for diarrheaLabs as listed belowPatient to be scheduled for iwcitanwpdkB57.30 Lower abdominal pain, unspecifiedComments:Recommended low fiber diet for the time being given recent history of [id number] Nausea with vomiting, unspecifiedNew Medication:Ondansetron 4 mg - take 1 tab every 4-6 hours as needed for nausea/vomitingNew Orders:Endoscopy, Ordered: 08/06/19Comments: Schedule patient for EGD I have explained the risks, benefits, and alternatives of the procedures. We have discussed the potential risks including, but not limited to perforation, bleeding, infection, cardiopulmonary complications, aspiration, or unforeseen complicationsContinue with PPI daily, 30 minutes before breakfast Antiemetics as needed Functional Status Functional Condition Comment Date Status Independent with all ADL's Active Independent with all IADL's Active Mental Status Description No Information Available Referrals Description No Information Available
--- NOTE | 2019-09-11 15:29 | ED ---
HPI Chest Pain - HPI Summary HPI Summary: Patient is 49 y/o M presenting to the ED via EMS for a chief complaint of constant midsternal chest pain that radiates to the left shoulder that began around 12:00 on 09/11/19. Patient is present with his daughter. Patient was given aspirin by EMS on route to [facility]. Patient rates the pain as an 8/10 in severity. Patient notes a cough with green phlegm. At baseline, patient reports bilateral LE pain and edema, shortness of breath, and diaphoresis. He has nausea , vomiting, and diarrhea at baseline from a past diagnosis of C. difficile diagnosed at [facility]. Patient denies fever. Any recent travel or history of blood clots is denied. He notes similar symptoms 2 years ago. PMHx is significant for HTN, COPD, and RSD. PSHx is significant for gastric bypass surgery and cardiac catheterization. FMHx is significant for VT. Patient admits tobacco, alcohol, and marijuana use. Allergies noted. Medications reviewed. - History of Current Complaint Chief Complaint: EDChestPainROMI Time Seen by Provider: 09/11/19 15:10 Hx Obtained From: Patient Onset/Duration: Atraumatic, Still Present Timing: Constant Initial Severity: Severe Current Severity: Severe Pain Intensity: 8 Pain Scale Used: 0-10 Numeric Chest Pain Radiates: Yes Chest Pain Radiates To:: Shoulder - Left Aggravating Factor(s): Nothing Alleviating Factor(s): Nothing Associated Signs and Symptoms: Positive: Chest Pain, Shortness of Breath - At baseline, Diaphoresis - At baseline, Nausea - At baseline, Cough - With green phlegm, Vomiting - At baseline, Edema - Bilateral LE, at baseline. Negative: Fever - Allergy/Home Medications Allergies/Adverse Reactions: Allergies Allergy/AdvReac Type Severity Reaction Status Date / Time No Known Allergies Allergy Verified 10/19/17 12:58 Home Medications: Home Medications FLUoxetine CAP* [PROzac CAP*] 10 mg PO DAILY 09/11/19 [History Confirmed ] Lisinopril/HCTZ 06/06.5(NF) [Zestoretic 06/06.(NF)] 1 tab PO DAILY 09/11/19 [ History Confirmed 09/11/19] Ondansetron TAB* [Zofran 4 MG Tab*] 4 mg PO Q6H PRN 09/11/19 [History Confirmed 09/11/19] Tetrahydrozoline HCl [Visine] 0.05 % BOTH EYES Q2HR PRN 09/11/19 [History Confirmed 09/11/19] PMH/Surg Hx/FS Hx/Imm Hx Previously Healthy: Yes Endocrine/Hematology History: Denies: Hx Diabetes, Hx Thyroid Disease Cardiovascular History: Reports: Hx Hypertension Respiratory History: Reports: Hx Chronic Obstructive Pulmonary Disease (COPD), Hx Sleep Apnea - PATIENT THINKS HE MAY HAVE SLEEP APNEA Musculoskeletal History: Reports: Hx Arthritis - IN BACK, Other Musculoskeletal History - RSD Sensory History: Denies: Hx Contacts or Glasses, Hx Legally Blind, Hx Deafness, Hx Hearing Aid Opthamlomology History: Denies: Hx Contacts or Glasses, Hx Legally Blind EENT History: Denies: Hx Deafness Psychiatric History: Reports: Hx Depression - Surgical History Surgical History: Yes Surgery Procedure, Year, and Place: L4 L5 Laminectomy. Dorsal Column Surgery. GASTRIC SLEEVE Hx Anesthesia Reactions: No Infectious Disease History: Yes Infectious Disease History: Reports: Hx Clostridium Difficile Denies: Traveled Outside the [place] in Last 30 Days - Family History Known Family History: Positive: Cardiac Disease, Hypertension, Diabetes - Social History Occupation: Disabled Alcohol Use: Weekly Hx Substance Use: No Substance Use Type: Reports: None Hx Tobacco Use: Yes Smoking Status (MU): Current Every Day Smoker Type: Cigarettes Amount Used/How Often: 1 PPD Length of Time of Smoking/Using Tobacco: 31 Years Have You Smoked in the Last Year: Yes Review of Systems Positive: Skin Diaphoresis - At baseline. Negative: Fever Positive: Chest Pain Positive: Shortness Of Breath - At baseline, Cough - With green phlegm Positive: Vomiting - At baseline, Diarrhea - At baseline, Nausea - At baseline Positive: Arthralgia - Left shoulder that radiates from the chest, Myalgia - Bilateral LE, at baseline, Edema - Bilateral LE, at baseline All Other Systems Reviewed And Are Negative: Yes Physical Exam - Summary Physical Exam Summary: Constitutional: Well-developed, Well-nourished, Alert. (-) Distressed Skin: Warm, Dry HENT: Normocephalic; Atraumatic Eyes: Conjunctiva normal Neck: Musculoskeletal ROM normal neck. (-) JVD, (-) Stridor, (-) Tracheal deviation Cardio: Rhythm regular, rate normal, Heart sounds normal; Intact distal pulses; Radial pulses are 2+ and symmetric. (-) Murmur Pulmonary/Chest wall: Effort normal. (-) Respiratory distress, (-) Wheezes, (-) Rales Abd: Soft, (-) tenderness, (-) Distension, (-) Guarding, (-) Rebound Musculoskeletal: (-) Edema Lymph: (-) Cervical adenopathy Neuro: Alert, Oriented x3 Psych: Mood and affect Normal Triage Information Reviewed: Yes Vital Signs On Initial Exam: Initial Vitals Temp Pulse Resp BP Pulse Ox 97.2 F 84 20 109/66 94 09/11/19 15:07 09/11/19 15:07 09/11/19 15:07 09/11/19 15:07 09/11/19 15:07 Vital Signs Reviewed: Yes Procedures - Sedation Patient Received Moderate/Deep Sedation with Procedure: No Diagnostics - Vital Signs Vital Signs Temp Pulse Resp BP Pulse Ox 09/11/19 15:07 97.2 F 84 20 109/66 94 - Laboratory Result Diagrams: 09/11/19 15:32 09/11/19 15:32 Lab Statement: Any lab studies that have been ordered have been reviewed, and results considered in the medical decision making process. - Radiology Chest X-ray Radiology Interpretation Completed By: Radiologist Summary of Radiographic Findings: Chest X-ray IMPRESSION: ILL-DEFINED VAGUE DENSITY IN THE LEFT LUNG BASE WHICH MAY REPRESENT SOME ATELECTASIS. A PA AND LATERAL VIEW OF THE CHEST IS SUGGESTED. THE PATIENT IS ABLE TO DO SO. Reviewed by Dr. Marshall. - EKG 15:39 Cardiac Rate: NL - 83 BPM EKG Rhythm: Sinus Rhythm ST Segment: Normal Ectopy: None Summary of EKG Findings: EKG at 15:39 shows normal sinus rhythm with 83 BPM, no STEMI. Reviewed and interpreted by Dr. Marshall. Re-Evaluation - Re-Evaluation First Eval Re-Evaluation Time: 16:57 Change: Improved Comment: At 16:57, his chest pain is resolved after being given NTG. Chest Pain Course/Dx - Course Course Of Treatment: Patient is here with left-sided chest pain that is nonexertional in nature. Patient's pain was nearly resolved by the time he arrived but didn't go completely away with nitroglycerin. Patient has risk factors of ACS due to his obesity, smoking status, hypertension. Patient had serum troponins which were negative. Patient's EKG showed no ischemic changes. Patient had a negative d-dimer. Patient's story is not consistent with ACS. Patient had negative chest x-ray. Patient was seen by internal medicine for outpatient stress test scheduling due to his heart score of 3 - Diagnoses Provider Diagnoses: Left-sided chest pain - Provider Notifications Discussed Care Of Patient With: Angela Howard - At 17:20, Dr. Howard will consult for an echocardiogram. Time Discussed With Above Provider: 17:20 Discharge ED - Sign-Out/Discharge Documenting (check all that apply): Patient Departure - Discharge - Discharge Plan Condition: Stable Disposition: HOME Patient Education Materials: Chest Pain (ED) Referrals: Care [facility] [Outside] Robinson Garrett MD [Medical Doctor] - Additional Instructions: PLEASE RETURN TO EMERGENCY DEPARTMENT FOR ANY NEW OR WORSENING SYMPTOMS. Please follow up with your primary care physician. Please follow up with Dr. Garrett. Please make all follow-ups in 1-3 days unless I advise you otherwise. You will be called to set up a cardiac stress test. - Billing Disposition and Condition Condition: STABLE Disposition: Home - Attestation Statements Document Initiated by Dawit: Yes Documenting Dashibe: Liat Gillis Provider For Whom Dawit is Documenting (Include Credential): Memo Marshall MD Scribe Attestation: Liat Loco, scribed for Memo Marshall MD on 09/11/19 at 2046. Scribe Documentation Reviewed: Yes Provider Attestation: The documentation as recorded by the Liat mendoza accurately reflects the service I personally performed and the decisions made by , Memo Marshall MD Status of Scribe Document: Viewed
[2019-09-11 15:43] LABS: ABS Basophils 0.1 10^3/ul (0-0.2); ABS Eosinophils 0.2 10^3/ul (0-0.6); ABS Lymphocytes 2.9 10^3/ul (1.0-4.8); ABS Monocytes 0.6 10^3/ul (0-0.8); ABS Neutrophils 5.9 10^3/ul (1.5-7.7); Hematocrit 48 % (42-52); Hemoglobin 16.8 g/dL (14.0-18.0); Lymphocyte % 30.1 %; Mean Corpuscular HGB Conc 35 g/dL (31-36); Mean Corpuscular Hemoglobin 36 pg (27-31); Mean Corpuscular Volume 100 fL (80-94); Mean Platelet Volume 7.3 fL (7.4-10.4); Platelet Count 275 10^3/uL (150-450); Red Blood Count 4.73 10^6 /uL (4.18-5.48); Red Cell Distribution Width 15 % (10-15); White Blood Count 9.7 10^3/uL (3.5-10.8)
[2019-09-11] MEDS ORDERED: Nitroglycerin TAB 0.4 MG* 0.4 MG TAB SL ONE (15:45)
[2019-09-11] MEDS ORDERED: NS 0.9% 1000 ML** 1,000 ML IV ONE (15:45)
[2019-09-11 16:02] LABS: Albumin/Globulin Ratio 1.4 (1-3); BUN/Creatinine Ratio 11.2 (8-20); Calcium 8.8 mg/dL (8.6-10.3); EGFR African American 89.3 (>60); EGFR Non-African American 73.8 (>60); Globulin 2.9 g/dL (2-4); Total Bilirubin 0.3 mg/dL (0.2-1.0); Total Protein 6.9 g/dL (6.4-8.9)
--- NOTE | 2019-09-11 20:26 | CONS ---
CONSULTATION REPORT: DATE OF CONSULT: 09/11/19 REQUESTING PHYSICIAN: Emergency room physician. CONSULTING PHYSICIAN: Dr. Luis Antonio Hopper. REFERENCE: Chest pain requiring stress test as an outpatient. CHIEF COMPLAINT: Chest pain. HISTORY OF PRESENT ILLNESS: This is a 49-year-old male, came into the emergency room with sudden onset of chest pain, tightness, started this afternoon at rest while he was smoking a cigarette, sitting in the chair, associated with shortness of breath and cough, yellow green phlegm. The pain was 8/10, tightness. He called his daughter who summoned the EMS, and when the EMS arrived, the patient was still having chest pain, but they did not give him any nitro as his blood pressure was soft and low in the systolic 108. He came into the emergency room with an ongoing chest pain and blood pressure was 109/ 66. He was given nitroglycerin sublingual and immediately resolved all his pain. EKG was done, which did not reveal any ischemic changes. Troponin was negative. Medicine service was consulted regarding setting up an outpatient stress test for the patient. The patient was seen and evaluated by me in the emergency room. He denies any chest pain at present time. His blood pressure was 140/72, satting 99%, comfortable, resting, in no discomfort. PAST MEDICAL HISTORY: 1. History of hypertension. 2. Recent diagnosis of Clostridium difficile, treated with antibiotic by [facility]. 3. History of COPD, active smoke user. 4. Chronic low back pain, on disability. MEDICATIONS: 1. He is on Prozac 10 mg daily. 2. Lisinopril/hydrochlorothiazide 10/12.5 daily. ALLERGIES: No known drug allergies. FAMILY HISTORY: His father is adopted, so not sure about rest of his family history; however, his father had a heart disease, but it was in the mid 60s. SOCIAL HISTORY: He drinks about 5 drinks a week. He smokes about half a pack a day. REVIEW OF SYSTEMS: As per HPI. PHYSICAL EXAM: Vital Signs: Temperature is 97.2, pulse 84, respirations 20, satting 94%, blood pressure 149/76. General: He is awake, alert, oriented, pleasant, in no distress. Head and Neck: Normocephalic, atraumatic, supple. Anicteric sclerae. Lungs: Clear to auscultation bilateral. Cardiovascular: S1, S2. Regular rate and rhythm. Abdomen: Positive bowel sounds. Soft, nontender, nondistended. Extremities: No pedal edema. DIAGNOSTIC STUDIES/LAB DATA: His blood work shows white count 9.7, hemoglobin 16, hematocrit 48, platelets 275. Coag less than 200 D-dimer. Chemistry: Sodium 140, potassium 4, BUN 12, creatinine 1, AST 50, ALT 58. Troponin 0.00. EKG shows normal sinus rhythm, rate is 83, DC 182, QRS 99, QTc 461. Good R- wave progression. No ST-T wave changes to suggest ischemia. Left axis deviation; however, negative 50-degree angle. His chest x-ray shows some mild COPD changes, otherwise no acute infiltrate with some ill-defined density in the left lower base, warranting further followup as an outpatient. IMPRESSION: This is a 49-year-old male with hypertension, chronic obstructive pulmonary disease, smoker, comes in with chest pain and tightness, resolved with nitroglycerin. At the present time, he definitely deserves having a stress test done, we will not be able to accomplish until Saturday. Given his low risk factor, I believe the patient is stable to have repeat troponin in 3 hours. If troponin is negative, then I will set up an outpatient stress test nuclear for which I placed the order to be done as an outpatient. I informed that to the patient as well as to the ER attending. If troponin comes back positive, to call us and then we will transition this consultation into H and P. [id number]/[facility] #: [id number] BERTHA
[2019-09-11 20:44] VITALS: BP 108/68
== END 2019-09-11 20:10 | disposition home or self-care (01) ==
LOC: ED 14:57
DX: R07.9 Chest pain, unspecified (principal); I10 Essential (primary) hypertension; J44.9 Chronic obstructive pulmonary disease, unspecified; F32.9 Major depressive disorder, single episode, unspecified; F17.210 Nicotine dependence, cigarettes, uncomplicated; Z98.84 Bariatric surgery status; Z79.899 Other long term (current) drug therapy
CPT/HCPCS: 36415; 71045; 80053; 84484; 85025; 85379; 93005; 96360; 99284; A9270-GY

== ENCOUNTER 2020-04-22 15:30 | Observation (INO) ==
[2020-04-22] MEDS ORDERED: Pantoprazole VIAL 40 MG VIAL IV ONE (15:57)
[2020-04-22] MEDS ORDERED: Ondansetron 4 mg VIAL 2 MG/ML 2 ml VIAL IV ONE (15:57)
[2020-04-22] MEDS ORDERED: NS 0.9% 1000 ml BAG 1,000 ML IV ONE (15:57)
[2020-04-22] MEDS ORDERED: fentaNYL 100 mcg/2 ml 50 MCG/ML VIAL ONE (16:05)
[2020-04-22] MEDS ORDERED: Midazolam 10 mg/10 ml VIAL 1 mg/ml 10 ml VIAL (10 mg) ONE (16:06)
[2020-04-22 17:15] LABS: Hematocrit 41 % (42-52); Hemoglobin 14.5 g/dL (14.0-18.0); Mean Corpuscular HGB Conc 35 g/dL (31-36); Mean Corpuscular Hemoglobin 38 pg (27-31); Mean Platelet Volume 8.4 fL (7.4-10.4); Platelet Count 163 10^3/uL (150-450); Red Cell Distribution Width 15 % (10-15)
[2020-04-22 17:20] LABS: ALT 135 U/L (7-52); AST 230 U/L (13-39); Albumin 4.2 g/dL (3.2-5.2); Albumin/Globulin Ratio 1.4 (1-3); Alkaline Phosphatase 84 U/L (34-104); Anion Gap 21 mmol/L (2-11); BUN/Creatinine Ratio 19.4 (8-20); Blood Urea Nitrogen 13 mg/dL (6-24); C Reactive Protein 20.64 mg/L (<8.01); CO2 Carbon Dioxide 22 mmol/L (22-32); Calcium 9.5 mg/dL (8.6-10.3); Chloride 89 mmol/L (101-111); EGFR African American 153.2 (>60); EGFR Non-African American 126.6 (>60); Globulin 3.1 g/dL (2-4); Glucose 92 mg/dL (70-100); Lipase 78 U/L (11.0-82.0); Potassium 3.1 mmol/L (3.5-5.0); Sodium 132 mmol/L (135-145); Total Protein 7.3 g/dL (6.4-8.9)
[2020-04-22 17:22] LABS: Troponin I 0.01 ng/mL (<0.03)
[2020-04-22 17:34] LABS: Alcohol, S < 10 mg/dL (<10)
[2020-04-22 18:03] LABS: Mean Corpuscular Volume 108 fL (80-94)
[2020-04-22 18:35] LABS: INR 1.17 (0.82-1.09)
[2020-04-22] MEDS ORDERED: Thiamine 100 MG/ML 2 ml VIAL 100 MG, Folic Acid 1 MG, Multiple Vitamin IV ADULT 10 ML i... IV ONE (18:49)
[2020-04-22 18:52] LABS: Magnesium 1.8 mg/dL (1.9-2.7)
[2020-04-22] MEDS ORDERED: Magnesium Sulfate IV 1GM/100ML 1 GM/100 ML BAG IV ONE (19:16)
[2020-04-22] MEDS: Potassium Chloride LIQUID 20 MEQ/15 ML LIQUID PO SCH ×2 (19:33→23:06)
[2020-04-22 19:37] LABS: ABS Lymphocytes 1.1 10^3/ul (1.0-4.8); ABS Monocytes 0.7 10^3/ul (0-0.8); ABS Neutrophils 5.2 10^3/ul (1.5-7.7); Eosinophil % 0.3 %; Lymphocyte % 15.1 %; Nucleated Red Blood Cells % 0.3
[2020-04-22] MEDS ORDERED: Albuterol HFA INHALER 8 gm MDI INH PRN (20:33)
[2020-04-22] MEDS: NS 0.9% 1000 ml BAG 1,000 ML IV SCH (23:12)
[2020-04-23] MEDS ORDERED: Lorazepam PYXIS KEY PRN (00:44)
[2020-04-23] MEDS ORDERED: LORazepam 2 mg VIAL 1 ml IV PUSH SCH ×2 (01:00)
[2020-04-23] MEDS: Potassium Chloride LIQUID 20 MEQ/15 ML LIQUID PO SCH (02:05)
[2020-04-23] MEDS: Pantoprazole VIAL 40 MG VIAL IV SCH ×2 (05:43→16:57)
[2020-04-23] MEDS: Ondansetron 4 mg VIAL 2 MG/ML 2 ml VIAL IV PRN ×3 (05:51→16:54)
[2020-04-23 06:29] LABS: ABS Eosinophils 0.1 10^3/ul (0-0.6); ABS Monocytes 0.4 10^3/ul (0-0.8); ABS Neutrophils 3.4 10^3/ul (1.5-7.7); Eosinophil % 1.3 %; Hematocrit 36 % (42-52); Hemoglobin 12.9 g/dL (14.0-18.0); Lymphocyte % 19.5 %; Mean Corpuscular HGB Conc 36 g/dL (31-36); Mean Corpuscular Hemoglobin 39 pg (27-31); Mean Corpuscular Volume 109 fL (80-94); Mean Platelet Volume 8.4 fL (7.4-10.4); Nucleated Red Blood Cells % 0.4; Platelet Count 132 10^3/uL (150-450); Red Blood Count 3.35 10^6 /uL (4.18-5.48); Red Cell Distribution Width 16 % (10-15); White Blood Count 4.9 10^3/uL (3.5-10.8)
[2020-04-23 06:49] LABS: Albumin 3.5 g/dL (3.2-5.2); Calcium 8.4 mg/dL (8.6-10.3); Potassium 3.6 mmol/L (3.5-5.0); Total Bilirubin 2.8 mg/dL (0.2-1.0)
[2020-04-23 06:55] LABS: Albumin/Globulin Ratio 1.3 (1-3); BUN/Creatinine Ratio 16.9 (8-20); EGFR African American 177.4 (>60); EGFR Non-African American 146.6 (>60); Globulin 2.7 g/dL (2-4); Total Protein 6.2 g/dL (6.4-8.9)
[2020-04-23] MEDS: NS 0.9% 1000 ml BAG 1,000 ML IV SCH (08:51)
[2020-04-23 15:16] LABS: Urine Appearance Clear; Urine Bilirubin Negative (Negative); Urine Blood Negative (Negative); Urine Color Yellow; Urine Glucose Negative (Negative); Urine Ketones 1+ (Negative); Urine Nitrite Negative (Negative); Urine Protein Negative (Negative); Urine Specific Gravity 1.013 (1.010-1.030); Urine Urobilinogen Negative (Negative)
[2020-04-23] MEDS ORDERED: NS 0.9% 1000 ml BAG 1,000 ML IV SCH (16:00)
[2020-04-24] MEDS: NS 0.9% 1000 ml BAG 1,000 ML IV SCH ×2 (00:53→11:17)
[2020-04-24] MEDS: Pantoprazole VIAL 40 MG VIAL IV SCH (05:35)
[2020-04-24 06:13] LABS: Hematocrit 40 % (42-52); Hemoglobin 14.1 g/dL (14.0-18.0); Mean Corpuscular HGB Conc 35 g/dL (31-36); Mean Corpuscular Hemoglobin 38 pg (27-31); Mean Corpuscular Volume 108 fL (80-94); Platelet Count 149 10^3/uL (150-450); Red Blood Count 3.69 10^6 /uL (4.18-5.48); Red Cell Distribution Width 15 % (10-15); White Blood Count 4.7 10^3/uL (3.5-10.8)
[2020-04-24 06:18] LABS: Albumin 3.9 g/dL (3.2-5.2); Albumin/Globulin Ratio 1.3 (1-3); BUN/Creatinine Ratio 10.2 (8-20); Calcium 8.8 mg/dL (8.6-10.3); EGFR African American 219.8 (>60); EGFR Non-African American 181.7 (>60); Globulin 2.9 g/dL (2-4); Potassium 3.4 mmol/L (3.5-5.0); Total Bilirubin 2.2 mg/dL (0.2-1.0); Total Protein 6.8 g/dL (6.4-8.9)
[2020-04-24] MEDS ORDERED: Potassium Chloride LIQUID 20 MEQ/15 ML LIQUID PO ONE (08:14)
[2020-04-24] MEDS: Ondansetron 4 mg VIAL 2 MG/ML 2 ml VIAL IV PRN (08:35)
[2020-04-24 10:00] LABS: Magnesium 1.9 mg/dL (1.9-2.7)
[2020-04-24 11:37] LABS: Hepatitis C Antibody Negative (Negative)
[2020-04-24 12:51] VITALS: BP 132/89
== END 2020-04-24 14:05 | disposition home or self-care (01) ==
LOC: ED 15:30 → MED 15:30
PROVIDERS: ADMIT Student in an Organized Health Care Education/Training Program; ATTEND Internal Medicine